=== PATIENT | female | born 1960 | race Caucasian/White ===

== ENCOUNTER 2016-12-05 18:34 | Emergency (ER) | payer OTHER ==
[~2016-12-05] VITALS: Ht 167.6 cm; Wt 53.0 kg
[2016-12-05 18:39] VITALS: BP 137/84; PULSE 102; RESP 16; TEMP 97.3; O2SAT 97
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
[2016-12-05] MEDS ORDERED: ORPHENADRINE INJ 60 MG/2 ML AMP IM ONE (21:15)
[2016-12-05] MEDS ORDERED: KETOROLAC TROMETHAMINE 60 MG/2 ML (IM) VIAL IM ONE (21:15)
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
[2016-12-05] MEDS ORDERED: BACL10TA PO (22:13)
[2016-12-05] MEDS ORDERED: IBUP-232 PO (22:13)
== END 2016-12-05 22:32 | disposition home or self-care (01) ==
LOC: NEPB 18:34
DX: S16.1XXA Strain of muscle, fascia and tendon at neck level, initial encounter (principal); M79.1 Myalgia; Z72.0 Tobacco use; V89.2XXA Person injured in unspecified motor-vehicle accident, traffic, initial encounter; Y92.410 Unspecified street and highway as the place of occurrence of the external cause
CPT/HCPCS: 72125; 96372; 99283; J1885; J2360

== ENCOUNTER 2017-05-23 10:06 | Observation (INO) | payer OTHER ==
[~2017-05-23] VITALS: Ht 160 cm; Wt 41.0 kg
[2017-05-23] VITALS (9 sets, daily range): BP systolic 98–118; BP diastolic 54–66; PULSE 69–84; RESP 16–24; TEMP 97.1–98.2; O2SAT 93–99
[~2017-05-23 10:06] MED LIST: BACL10TA PO; IBUP-232 PO
[2017-05-23 10:52] LABS: AUTOMATED NEUTROPHIL # 2.3 TH/MM3 (1.8-7.7); BASOPHIL % 0.6 % (0.0-2.0); EOSINOPHIL # 0.3 TH/MM3 (0-0.4); EOSINOPHIL % 5.8 % (0.0-4.0); HEMATOCRIT 41.3 % (35.0-46.0); HEMO FLAGS DIFF FINAL; LYMPH % 44.5 % (9.0-44.0); LYMPHOCYTE # 2.5 TH/MM3 (1.0-4.8); MEAN CELL VOLUME 96.1 FL (80.0-100.0); MEAN CORPUSCULAR HEMOGLOBIN 33.1 PG (27.0-34.0); MEAN CORPUSCULAR HGB CONC 34.5 % (32.0-36.0); MONO % 8.2 % (0.0-8.0); NEUT % 40.9 % (16.0-70.0); PLATELET COUNT 122 TH/MM3 (150-450); RED CELL DISTRIBUTION WIDTH 13.9 % (11.6-17.2); WHITE BLOOD COUNT 5.6 TH/MM3 (4.0-11.0)
[2017-05-23 10:57] LABS: BACTERIA, URINE OCC /hpf; BLOOD, URINE NEG (NEG); COMMENT (UR) CULT NOT INDICATED; CULTURE IF INDICATED CULT NOT INDICATED; GLUCOSE,URINE NEG (NEG); KETONE, URINE NEG (NEG); NITRITE,URINE NEG (NEG); PH, URINE 5.5 (5.0-8.5); URINE COLOR LIGHT-YELLOW (YELLW/STRAW)
[2017-05-23 11:00] LABS: AMPHETAMINE, URINE NEG (NEG); BARBITURATES, URINE NEG (NEG); COCAINE, URINE POS (NEG)
[2017-05-23 11:16] LABS: ANION GAP 7 MEQ/L (5-15); AST (GOT) 116 U/L (15-37); BICARBONATE 30.1 MEQ/L (21.0-32.0); BLOOD UREA NITROGEN 16 MG/DL (7-18); CHLORIDE 103 MEQ/L (98-107); GLOMERULAR FILTRATION RATE 70 ML/MIN (>89); POTASSIUM 3.7 MEQ/L (3.5-5.1); SODIUM (NA) 140 MEQ/L (136-145)
[2017-05-23 11:19] LABS: ALKALINE PHOSPHATASE 146 U/L (45-117); ALT (GPT) 85 U/L (10-53); TOTAL BILIRUBIN ADULT 0.4 MG/DL (0.2-1.0)
[2017-05-23 11:25] LABS: ACETAMINOPHEN LESS THAN 2.0 MCG/ML (10.0-30.0)
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
--- NOTE | 2017-05-23 13:00 | RADRPT ---
EXAM DATE/TIME: 05/23/2017 12:32 [facility] COMPARISON: No previous studies available for comparison. INDICATIONS : Altered mental status. RADIATION DOSE: 30.77 CTDIvol (mGy) MEDICAL HISTORY : Non-responsive. SURGICAL HISTORY : Non-responsive. ENCOUNTER: Initial ACUITY: 1 day PAIN SCALE: Non-responsive LOCATION: cranial TECHNIQUE: Multiple contiguous axial images were obtained of the head. Using automated exposure control and adj ustment of the mA and/or kV according to patient size, radiation dose was kept as low as reasonably a chievable to obtain optimal diagnostic quality images. DICOM format image data is available electro nically for review and comparison. FINDINGS: CEREBRUM: The ventricles are normal for age. No evidence of midline shift, mass lesion, hemorrhage or acute in farction. No extra-axial fluid collections are seen. POSTERIOR FOSSA: The cerebellum and brainstem are intact. The 4th ventricle is midline. The cerebellopontine angle i s unremarkable. EXTRACRANIAL: The visualized portion of the orbits is intact. SKULL: The calvaria is intact. No evidence of skull fracture. CONCLUSION: Normal examination for a patient of this age. Larry Reyes MD on May 23, 2017 at 12:57 Board Certified Radiologist. This report was verified electronically.
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
[2017-05-23] MEDS ORDERED: DIAZ5 PO (14:09)
[2017-05-23] MEDS ORDERED: BUPRENORPHINE 8 MG SL (14:09)
[2017-05-23] MEDS ORDERED: HYDR50TA94 PO (14:09)
[2017-05-23] MEDS ORDERED: ROBA500T PO (14:09)
[2017-05-23] MEDS ORDERED: NALOXONE HCL 0.4 MG/ML AMP IV PRN (14:15)
[2017-05-23] MEDS ORDERED: LORazepam 2 MG/ML VIAL IV PUSH PRN (14:15)
[2017-05-23] MEDS: FOLIC ACID 1 MG TAB PO SCH (14:15)
[2017-05-23] MEDS: MULTIVITAMIN TAB PO SCH (14:15)
[2017-05-23] MEDS ORDERED: MAGNESIUM HYDROXIDE SUSP 30 ML CUP PO PRN (14:15)
[2017-05-23] MEDS ORDERED: SODIUM CHLORIDE 0.9% FLUSH 10 ML FLUSH IV FLUSH PRN (14:15)
[2017-05-23] MEDS ORDERED: ONDANSETRON HCL 4 MG/2 ML VIAL IVP PRN (14:15)
[2017-05-23] MEDS: THIAMINE HCL 100 MG TAB PO SCH (14:15)
[2017-05-23] MEDS ORDERED: ACETAMINOPHEN 325 MG TAB PO PRN (14:15)
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
[2017-05-23] MEDS: 1/2 NS + KCL 20 MEQ INJ 1,000 ML IV SCH (14:39)
[2017-05-23] MEDS: SODIUM CHLORIDE 0.9% FLUSH 10 ML FLUSH IV FLUSH SCH (19:34)
[2017-05-24] MEDS: 1/2 NS + KCL 20 MEQ INJ 1,000 ML IV SCH (02:08)
[2017-05-24 03:31] VITALS: BP 104/54; PULSE 73; RESP 18; TEMP 98.7; O2SAT 91
[2017-05-24 07:14] LABS: AUTOMATED NEUTROPHIL # 3.1 TH/MM3 (1.8-7.7); BASOPHIL % 0.4 % (0.0-2.0); EOSINOPHIL # 0.2 TH/MM3 (0-0.4); EOSINOPHIL % 3.6 % (0.0-4.0); HEMATOCRIT 42.5 % (35.0-46.0); HEMO FLAGS DIFF FINAL; LYMPH % 27.7 % (9.0-44.0); LYMPHOCYTE # 1.4 TH/MM3 (1.0-4.8); MEAN CELL VOLUME 96.8 FL (80.0-100.0); MEAN CORPUSCULAR HEMOGLOBIN 32.2 PG (27.0-34.0); MEAN CORPUSCULAR HGB CONC 33.2 % (32.0-36.0); MONO % 7.3 % (0.0-8.0); PLATELET COUNT 110 TH/MM3 (150-450); RED BLOOD COUNT 4.39 MIL/MM3 (4.00-5.30); RED CELL DISTRIBUTION WIDTH 13.8 % (11.6-17.2); WHITE BLOOD COUNT 5.1 TH/MM3 (4.0-11.0)
[2017-05-24 07:19] LABS: BICARBONATE 33.7 MEQ/L (21.0-32.0); POTASSIUM 4.5 MEQ/L (3.5-5.1)
[2017-05-24 07:24] VITALS: BP 119/62; PULSE 66; RESP 16; TEMP 97.3; O2SAT 94
[2017-05-24] MEDS: THIAMINE HCL 100 MG TAB PO SCH (08:14)
[2017-05-24] MEDS: SODIUM CHLORIDE 0.9% FLUSH 10 ML FLUSH IV FLUSH SCH (08:14)
[2017-05-24] MEDS: MULTIVITAMIN TAB PO SCH (08:14)
[2017-05-24] MEDS: FOLIC ACID 1 MG TAB PO SCH (08:14)
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
[2017-05-24 11:26] VITALS: BP 115/56; PULSE 61; RESP 18; TEMP 98.4; O2SAT 94
== END 2017-05-24 16:10 | disposition home or self-care (01) ==
LOC: NEPE 10:06 → NEDA 14:15 → INTOOBSV 14:15 → NEPFCDU 16:31
PROVIDERS: ADMIT Hospitalist; ATTEND Hospitalist
DX: F10.129 Alcohol abuse with intoxication, unspecified (principal); F14.10 Cocaine abuse, uncomplicated; F13.10 Sedative, hypnotic or anxiolytic abuse, uncomplicated; R53.83 Other fatigue; M47.892 Other spondylosis, cervical region; M48.00 Spinal stenosis, site unspecified; F17.200 Nicotine dependence, unspecified, uncomplicated; Z79.899 Other long term (current) drug therapy; Z91.19 Patient's noncompliance with other medical treatment and regimen; V43.52XA Car driver injured in collision with other type car in traffic accident, initial encounter; Y92.410 Unspecified street and highway as the place of occurrence of the external cause
CPT/HCPCS: 70450; 72125; 80048; 80053; 80307; 81001; 85025; 92610; 99285; G0378; L0150; P9612